=== PATIENT | female | born 1990 | race Two or more races ===

== ENCOUNTER 2024-01-10 14:39 | Emergency (ER) | payer MEDICAID, OTHER ==
[~2024-01-10] VITALS: Ht 167.6 cm; Wt 100.0 kg
--- NOTE | 2024-01-10 15:44 | ED.PDOC ---
[place]. trauma (HPI) HPI Comments This is a 33-year-old female presents to the ED via ambulance chief complaint dog bites. Patient states she was breaking up a dog fight between her 2 dogs when her other dog got excited and bit her in the neck scalp and ear. Brought in by EMS bleeding is controlled at this time. Reports dog's vaccines are up-to-date. Denies any other known injuries. Reports tetanus up-to-date 1 year ago. Chief Complaint: Animal Bite Time Seen by MD: 15:20 Reviewed notes: Nurses Notes, Dairy Laboratory Technician Notes, Medications, Allergies Allergies: Coded Allergies: NO KNOWN ALLERGIES (Unverified , 01/10/24) Home Meds Active Scripts Amoxicillin & Pot Clavulanate (AUGMENTIN TABLET) 875 Mg Tb, 875 MG PO BID for 10 Days, #20 TAB Prov:DAVIN SYLVESTER MAT TESTER 01/10/24 Information Source: Patient Past Medical History PAST MEDICAL HISTORY: Denies Surgical History: Denies all surgeries LASER SPECIALIST History: No Pertinent LASER SPECIALIST History Family History Family History: Reviewed,noncontributory to illness Social History Smoker: Non-Smoker Alcohol: Denies ETOH Use Drugs: Denies Drug Use Constitutional: denies: chills, diaphoresis, fatigue, fever, malaise, sweats, weakness, others EENTM: denies: blurred vision, double vision, ear bleeding, ear discharge, ear drainage, ear pain, ear ringing, eye pain, eye redness, hearing loss, mouth pain, mouth swelling, nasal discharge, nose bleeding, nose congestion, nose pain, photophobia, tearing, throat pain, throat swelling, voice changes, others Respiratory: denies: cough, hemoptysis, orthopnea, SOB at rest, shortness of breath, SOB with excertion, stridor, wheezing, others Cardiovascular: denies: chest pain, dizzy spells, diaphoresis, Dyspnea on exertion, edema, irregular heart beat, left arm pain, lightheadedness, palpitations, PND, syncope, others Gastrointestinal: denies: abdomen distended, abdominal pain, blood streaked bowels, constipated, diarrhea, dysphagia, difficulty swallowing, hematemesis, melena, nausea, poor appetite, poor fluid intake, rectal bleeding, rectal pain, vomiting, others Genitourinary: denies: abnormal vagina bleeding, burning, dyspareunia, dysuria, flank pain, frequency, hematuria, incontinence, pain, , vagina discharge, urgency, others Neurological: denies: dizziness, fainting, headache, left sided numbness, left sided weakness, numbness, paresthesia, pre-existing deficit, right sided numbness, right sided weakness, seizure, speech problems, tingling, tremors, weakness, others Musculoskeletal: denies: back pain, gout, joint pain, joint swelling, muscle pain, muscle stiffness, neck pain, others Integumetry: reports: wounds; denies: bruises, change in color, change in hair/nails, dryness, laceration, lesions, lumps, rash, others Allergic/Immunocompromised: denies: Difficulty Healing, Frequent Infections, Hives, Itching, others Hematologic/Lymphatic: denies: anemia, blood clots, easy bleeding, easy bruising, swollen glands, others Endocrine: denies: excessive hunger, excessive sweating, excessive thirst, excessive urination, flushing, intolerance to cold, intolerance to heat, unexplained weight gain, unexplained weight loss, others Psychiatric: denies: anxiety, bipolar disorder, depression, hopeless, panic disorder, schizophrenia, sleepless, suicidal, others Physical Exam General Appearance: No Apparent Distress, Normal HEENT: Normal ENT Inspection, Pharynx Normal, TMs Normal Neck: Full Range of Motion, Non-Tender, Normal Respiratory: Chest Non-Tender, Lungs Clear, No Respiratory Distress, Normal Breath Sounds Cardiovascular: No Edema, No JVD, No Murmur, No Gallop, Normal Peripheral Pulses, Regular Rate/Rhythm Breast Exam: Deferred Gastrointestinal: No Organomegaly, Non Tender, No Pulsatile Mass, Normal Bowel Sounds, Soft Genitalia: Deferred Pelvic: Deferred Rectal: Deferred Extremities: Normal capillary refill, Normal inspection, Normal range of motion, Non-tender, No pedal edema Musculoskeletal : Apperance: Normal Neurologic: Alert, crocheter hand II-XII nml as Tested, No Motor Deficits, Normal Affect, Normal Mood, No Sensory Deficits Cerebellar Function: Normal Reflexes: Normal Skin: Dry, Normal Color, Warm, Wounds (Puncture wound to right ear helix completely through cartilage and other side of the ear. Three 2 cm puncture wounds noted to right side of neck, bleeding controlled.) Lymphatic: No Adenopathy Was a procedure done? Was a procedure done?: No Laceration Repair : Location Three puncture wounds right side of neck 2 cm each Length 2 cm Anesthetic: Lidocaine, Without epi Laceration Repair Prep: Saline, Betadine Laceration Repair Wound Comple: epidermis/dermis repair Laceration Repair: Number of sutures (4), Simple Informed consent obtained: Yes Risks, benefits, and alternati: Yes Notes 2 cm laceration right posterior neck at hairline required 2 sutures. Other 2 puncture wounds required 1 suture each for a total of 4 sutures. Differential Diagnosis Multiple Trauma: Laceration X-Ray, Labs, Meds, VS Vital Signs Date Time Temp Pulse Resp B/P (MAP) Pulse Ox O2 Delivery O2 Flow Rate FiO2 01/10/24 17:24 98.4 88 12 125/79 (94) 97 98.4 01/10/24 17:24 88 12 97 Room Air 01/10/24 14:45 98.4 88 12 125/79 (94) 97 Current Medications Medications (Trade) Dose Ordered Sig/Manuelito Route Start Time Stop Time Status Last Admin Lidocaine HCl (Xylocaine 1%) 5 ml ONCE ONCE IJ 01/10/24 16:00 01/10/24 16:01 DC 01/10/24 16:00 Ceftriaxone Sodium (Rocephin) 1,000 mg ONCE ONCE IM 01/10/24 17:30 01/10/24 17:31 DC 01/10/24 17:30 Acetaminophen/ Hydrocodone Bitart ([place] 10/325MG Tab) 1 tab ONCE ONCE PO 01/10/24 17:45 01/10/24 17:46 DC 01/10/24 17:45 X-Ray, Labs, Meds, VS Comment See procedure not. Patient given Rocephin 1 g IM. Patient also given [place] 10 mg reports improvement in pain. We will start patient on Augmentin twice daily times 10 days. Advised to follow up with her PCP back here or urgent care for wound re-evaluation in 2 days. Advised suture removal in 7-10 days. Advised to return to the ER for uncontrolled bleeding, or any signs and symptoms of infection such as fevers nausea vomiting increasing redness drainage or streaking. Patient agrees with discharge plan of care. Time of 1ST Reevaluation: 17:28 Reevaluation 1ST: Improved Patient Education/Counseling: Diagnosis, Treatment, Prognosis, Need For Follow Up Family Education/Counseling: No Family Present Departure 1 Departure Time of Disposition: 17:28 Impression: Primary Impression: Dog bite Qualified Codes: W54.0XXA - Bitten by dog, initial encounter Disposition: HOME / SELF CARE / HOMELESS Condition: Stable e-Prescriptions Amoxicillin & Pot Clavulanate (AUGMENTIN TABLET) 875 Mg Tb 875 MG PO BID for 10 Days, #20 TAB Prov: DAVIN SYLVESTER 01/10/24 Discharged With: Self Critical Care Note Critical Care Time?: No Stability Stability form required: DAVIN Rocha Jan 10, 2024 15:44
[2024-01-10] MEDS: LIDOCAINE 1% HCL (LOCAL ANESTH.) INJ 20ML MDV IJ ONE (16:00)
[2024-01-10 17:24] VITALS: BP 125/79; PULSE 88; RESP 12; TEMP 98.4; O2SAT 97
[2024-01-10] MEDS ORDERED: AUG875T PO (17:27)
[2024-01-10] MEDS: cefTRIAXone SOD 1,000 MG VL IM ONE (17:30)
[2024-01-10] MEDS: HYDROcodone-ACET 10/325MG TAB PO ONE (17:45)
== END 2024-01-10 17:47 | disposition home or self-care (01) ==
LOC: EDBD 14:39 → ER 14:45 → EDBD 14:45 → ER 17:47
DX: S11.95XA Open bite of unspecified part of neck, initial encounter (principal); S01.05XA Open bite of scalp, initial encounter; S01.35 Open bite of ear; W54.0XXA Bitten by dog, initial encounter; Y93.89 Activity, other specified; Y92.89 Other specified places as the place of occurrence of the external cause; Y99.8 Other external cause status
CPT/HCPCS: 12001; 96372; 99283; J0696; J2003